=== PATIENT | female | born 1970 | race Caucasian/White ===

== ENCOUNTER 2017-07-24 19:23 | Inpatient (IN) ==
[2017-07-24] MEDS ORDERED: 0.9 % Sodium Chloride 1,000 ML IVC ONE (19:57)
[2017-07-24] MEDS ORDERED: Ketorolac 15 MG/ML VIAL IVP ONE (19:57)
[2017-07-24] MEDS ORDERED: Ondansetron 4 MG/2 ML VIAL IVP ONE (19:57)
[2017-07-24 20:07] LABS: Basophils # 0.1 K/mcL (0.0-0.2); Basophils % 0.6 %; Eosinophils # 0.1 K/mcL (0.0-0.6); Eosinophils % 0.8 %; Hematocrit 44.5 % (35.3-44.9); Hemoglobin 14.7 g/dL (11.5-15.4); Immature Granulocytes % 0.4 % (0-4); Lymphocytes # 1.1 K/mcL (0.6-4.6); Lymphocytes % 9.4 %; Mean Corpuscular Hemoglobin 27.3 pg (28.0-33.3); Mean Corpuscular Volume 82.6 fL (83.0-100.0); Mean Platelet Volume 10.4 fL (9.4-12.4); Monocytes % 8.7 %; Neutrophils # 9.6 K/mcL (1.6-8.9); Platelet Count 388 K/mcL (140-400); Red Blood Count 5.39 M/mcL (3.82-4.97); Red Cell Distribution Width 15.5 % (11.5-14.5); Segmented Neutrophils % 80.1 %
[2017-07-24 20:29] LABS: Alanine Aminotransferase 14 Units/L (7-52); Albumin 4.4 g/dL (3.5-5.7); Albumin/Globulin Ratio 1.3 (1.1-2.2); Alkaline Phosphatase 95 Units/L (34-104); Aspartate Amino Transferase 22 Units/L (13-39); BUN/Creatinine Ratio 19 (6-26); Bilirubin,Direct 0.1 mg/dL (0.0-0.2); Bilirubin,Indirect 0.3 mg/dL (0.0-1.2); Bilirubin,Total 0.4 mg/dL (0.3-1.0); Blood Urea Nitrogen 15 mg/dL (6-20); Calcium 9.9 mg/dL (8.6-10.3); Carbon Dioxide 25 mEq/L (23-29); Chloride 101 mEq/L (98-107); Globulin 3.3 g/dL (2.4-3.5); Glucose 122 mg/dL (70-105); Lipase 36 Units/L (11-82); Osmolality,Calculated 282 (280-300); Potassium 3.5 mEq/L (3.5-5.1); Sodium 135 mEq/L (136-145); Total Protein 7.7 g/dL (6.4-8.9); eGFR For African Americans > 60 (> 60); eGFR For Non-African Americans > 60 (> 60)
[2017-07-24 20:50] LABS: Platelet Estimate Normal (Normal)
[2017-07-24] MEDS ORDERED: *HR* FentaNYL (PF) 100 MCG/2 ML VIAL IVP ONE (20:50)
[2017-07-24] MEDS ORDERED: Haloperidol Lactate 5 MG/ML VIAL IVP ONE (20:50)
--- NOTE | 2017-07-24 23:21 | Emergency Department Note ---
Disposition Clinical Impression: Small bowel obstruction Disposition: Admitted As Inpatient Condition: Good Referrals: NONE,PCP [Primary Care Provider] - Nikolas Oconnell DO [Family Provider] - Abdominal Pain HPI - General Chief Complaint: ED Abdominal Pain Stated Complaint: ABD pain/nausea Time Seen by Provider: 07/24/17 19:47 Source: patient Mode of arrival: ambulatory Limitations: no limitations Nursing Notes Reviewed: Yes Vital Signs Reviewed: Yes - History of Present Illness HPI Narrative: Patient presents to the emergency department after developing abdominal pain with associated nausea earlier today. Patient's symptoms have worsened throughout the day with pain radiating to the back. Patient states she has a history of previous gallbladder surgery as well as gastric bypass performed 14 years ago. Surgeon no longer practices. The patient states she is not able to vomit secondary to the type of surgery she had. The patient has not had fever or chills. Patient does not have any rebound tenderness. Pain Scale: 5 - Related Data Allergies Allergy/AdvReac Type Severity Reaction Status Date / Time Influenza Virus Vaccines Allergy Anaphylaxis Verified 07/24/17 19:26 latex Allergy Anaphylaxis Verified 07/24/17 19:26 pain medication AdvReac See Uncoded 07/24/17 19:26 Comments Review of Systems: CONSTITUTIONAL: No weight loss, fever, chills, weakness or fatigue. HEENT: Eyes: No visual changes. Ears, Nose, Throat: No hearing loss, difficulty talking or unable to swallow. SKIN: No rash or itching. CARDIOVASCULAR: No chest pain, chest pressure or chest discomfort. No palpitations or edema. RESPIRATORY: No shortness of breath, cough or sputum. GASTROINTESTINAL: Nausea and abdominal pain GENITOURINARY: No burning on urination or hematuria. NEUROLOGICAL: No headache, dizziness, syncope, paralysis, ataxia, numbness or tingling in the extremities. No change in bowel or bladder control. MUSCULOSKELETAL: No muscle pain, back pain, joint pain or stiffness. Abdominal Pain PMH - Past Medical History Medical history: Reports: other Female Surgical History: Reports: cholecystectomy, orthopedic, other, other Psychiatric history: Reports: no psych history - Social History Smoking status: Current every day smoker Alcohol use: Reports: occasionally Drug use: Reports: none Physical Exam General: Well appearing, nontoxic, no acute distress Head: Normocephalic Atraumatic Eyes: PERRL, EOMI ENT: Airway patent, no stridor Neck: supple, no meningismus Chest: Lungs clear to auscultation bilateral Cardiac: Regular rate and rhythm, no murmurs, rubs or gallops Abdomen: soft, mild epigastric tenderness, nondistended; no guarding, rebound, or tenderness to percussion; no CVA tenderness Musculoskeletal: Calves symmetric, nontender, no palpable cord Skin: No rash, normal skin tone Neuro: Alert and Oriented to person, place, and time; No focal deficit, CN 2-12 symmetric and intact - General Limitations: no limitations General appearance: alert, in no apparent distress Course - Reevaluation(s) Reevaluation #1: Patient still complaining of nausea after Zofran. Patient will be given Haldol for nausea control. On reevaluation the Haldol has significantly improved her symptoms that she is resting in bed comfortably without complaint. Reevaluation #2: Discussed with the patient the placement of an NG tube. 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 Patient does not want NG tube at this time. - Consultations Consultation #1: Discussed with Dr. Ornelas. Patient can be admitted to the hospital service and he will consult. Consultation #2: Discussed with hospitalist. Requests NG tube placement in the ED. Vital Signs Temperature 98 F 07/24/17 19:26 Pulse Rate 81 07/24/17 19:26 Respiratory Rate 18 07/24/17 19:26 Blood Pressure 139/88 07/24/17 19:26 O2 Sat by Pulse Oximetry 96 07/24/17 19:26 Temperature 98 F 07/24/17 19:26 Pulse Rate 81 07/24/17 19:26 Respiratory Rate 18 07/24/17 19:26 Blood Pressure 139/88 07/24/17 19:26 O2 Sat by Pulse Oximetry 96 07/24/17 19:26 Oxygen Delivery Oxygen Delivery Room Air Abdominal Pain - Lab Data Result diagrams: 07/24/17 20:00 07/24/17 20:00 Lab Results 07/24/17 07/24/17 Range/Units 20:00 20:00 WBC 12.0 H (4.3-11.1) K/mcL RBC 5.39 H (3.82-4.97) M/mcL Hgb 14.7 (11.5-15.4) g/dL Hct 44.5 (35.3-44.9) % MCV 82.6 L (83.0-100.0) fL MCH 27.3 L (28.0-33.3) pg MCHC 33.0 (31.6-35.5) g/dL RDW 15.5 H (11.5-14.5) % Plt Count 388 (140-400) K/mcL MPV 10.4 (9.4-12.4) fL Immature Gran % 0.4 (0-4) % Seg Neutrophils % 80.1 % Lymphocytes % 9.4 % Monocytes % 8.7 % Eosinophils % 0.8 % Basophils % 0.6 % Neutrophils # 9.6 H (1.6-8.9) K/mcL Lymphocytes # 1.1 (0.6-4.6) K/mcL Monocytes # 1.0 (0.0-1.3) K/mcL Eosinophils # 0.1 (0.0-0.6) K/mcL Basophils # 0.1 (0.0-0.2) K/mcL Platelet Estimate Normal (Normal) Sodium 135 L (136-145) mEq/L Potassium 3.5 (3.5-5.1) mEq/L Chloride 101 (98-107) mEq/L Carbon Dioxide 25 (23-29) mEq/L BUN 15 (6-20) mg/dL Creatinine 0.79 (0.60-1.20) mg/dL Est GFR ( Amer) > 60 (> 60) Est GFR (Non-Af Amer) > 60 (> 60) BUN/Creatinine Ratio 19 (6-26) Glucose 122 H (70-105) mg/dL Calculated Osmolality 282 (280-300) Calcium 9.9 (8.6-10.3) mg/dL Total Bilirubin 0.4 (0.3-1.0) mg/dL Direct Bilirubin 0.1 (0.0-0.2) mg/dL Indirect Bilirubin 0.3 (0.0-1.2) mg/dL AST 22 (13-39) Units/L ALT 14 (7-52) Units/L Alkaline Phosphatase 95 (34-104) Units/L Serum Total Protein 7.7 (6.4-8.9) g/dL Albumin 4.4 (3.5-5.7) g/dL Globulin 3.3 (2.4-3.5) g/dL Albumin/Globulin Ratio 1.3 (1.1-2.2) Lipase 36 (11-82) Units/L
--- NOTE | 2017-07-24 23:23 | Emergency Department Note ---
START Narrative - START START: I examined this patient and my medical decision-making was reviewed with the Resident Physician. I agree with the documented findings, disposition and treatment plan as described except to the extent set forth below. Discussed case with surgery. Findings of small bowel obstruction. Patient medicated for nausea. She is no longer vomiting. She will be admitted for further evaluation of possible bowel obstruction.
[2017-07-25] MEDS ORDERED: Naloxone 0.4 MG/ML INJ IVP PRN (01:29)
--- NOTE | 2017-07-25 04:00 | Internal Med History&Physical ---
Date of Encounter: 07/25/17 Time of Encounter: 00:15 Assessment and Plan (1) DVT prophylaxis Current visit: Yes Status: Acute Heparin SC (2) Small bowel obstruction Current visit: Yes Status: Acute Pt has Hx of surgery. She also has similar SBO previously. As she has passing gas and had BM, consider partial SBO. - Keep NPO, IVF - Surgical consult called by ER. Internal Medicine - H&P: HPI Chief complaint: Abd pain Admitted From: Home Plans for Post Hospital Care: Home History of present illness: Ms. Broderick is a 46 year old female with hx of gastric bypass surgery present to ER for abd pain and nausea/vomiting. Pt said abd pain started since 6AM, cramping, rediated to back. Pt also has nausea and vomited several times. The vomitings are clear liquid, no blood in it. Pt denies fever or diarrhea. She can pass gas and had on BM in ER, stool is yellowish. In ER, Abd CT shows SBO. Pt was admitted for further management. Past Med Surg Social Fam HX - Past Medical History Medical history: other Psychiatric history: no psych history - Social History Smoking Status: Current every day smoker Packs per day: 1/2 ppd Smokeless Tobacco Status: No Alcohol use: occasionally Drug use: none - Family History Mother History Unknown: Yes Internal Medicine - H&P: Meds 3 Allergy/AdvReac Type Severity Reaction Status Date / Time Influenza Virus Vaccines Allergy Anaphylaxis Verified 07/24/17 19:26 latex Allergy Anaphylaxis Verified 07/24/17 19:26 pain medication AdvReac See Uncoded 07/24/17 19:26 Comments All Systems PM: A 10-system review of systems was performed and is negative for pertinent findings except as documented above in the HPI. - Constitutional Vitals: Temp Pulse Resp BP Pulse Ox 99.3 F 66 17 138/83 97 07/25/17 01:45 07/25/17 01:45 07/25/17 01:45 07/25/17 01:45 07/25/17 01:45 General appearance: Present: A&O X 3, no acute distress, answers questions appropriately - Head Head exam: Present: atraumatic, normocephalic - Eye Eye exam: Present: PERRL, conjuntiva pink, sclera anicteric Pupils: Present: PERRL - Neck Neck exam general surgery: Present: supple, trachea midline. Absent: lymphadenopathy - Respiratory Respiratory exam: Present: CTAB. Absent: accessory muscle use, rales, rhonchi, wheezes - Cardiovascular Cardiovascular exam: Present: RRR, +S1, +S2. Absent: diastolic murmur, gallop, rubs, systolic murmur - GI/Abdominal GI/Abdominal exam: Present: normal bowel sounds, soft, tenderness (mild tenderness w/o rebound or guarding), no peritoneal signs. Absent: distended - Extremities Exam Extremities exam: Present: warm, radial pulses palpable and symmetrical. Absent : calf tenderness, cyanotic, pedal edema - Neurological Exam Neurological exam: Present: CN II-XII intact, oriented X3, no focal deficits. Absent: pronater drift, facial droop, speech deficit - Skin Skin exam: Present: dry, intact Internal Med - H&P Results - Labs CBC & Chem 7: 07/24/17 20:00 07/24/17 20:00
[2017-07-25] MEDS: 0.9 % Sodium Chloride 1,000 ML IVC SCH ×2 (04:13→18:46)
[2017-07-25 04:48] LABS: Basophils # 0.1 K/mcL (0.0-0.2); Basophils % 0.5 %; Eosinophils # 0.1 K/mcL (0.0-0.6); Eosinophils % 0.5 %; Hematocrit 41.3 % (35.3-44.9); Hemoglobin 13.8 g/dL (11.5-15.4); Immature Granulocytes % 0.5 % (0-4); Lymphocytes # 2.2 K/mcL (0.6-4.6); Lymphocytes % 16.6 %; Mean Corpuscular HGB Conc 33.4 g/dL (31.6-35.5); Mean Corpuscular Hemoglobin 27.7 pg (28.0-33.3); Mean Corpuscular Volume 82.8 fL (83.0-100.0); Mean Platelet Volume 10.4 fL (9.4-12.4); Monocytes # 1.1 K/mcL (0.0-1.3); Monocytes % 8.7 %; Platelet Count 338 K/mcL (140-400); Red Blood Count 4.99 M/mcL (3.82-4.97); Red Cell Distribution Width 15.6 % (11.5-14.5); Segmented Neutrophils % 73.2 %
[2017-07-25 05:01] LABS: Neutrophils # 9.5 K/mcL (1.6-8.9)
[2017-07-25] MEDS: Ketorolac 15 MG/ML VIAL IVP PRN ×2 (05:07→21:44)
[2017-07-25] MEDS: *HR* Heparin 5,000 UNIT/ML VIAL SQ SCH ×2 (05:08→18:46)
[2017-07-25] MEDS: Ondansetron 4 MG/2 ML VIAL IVP PRN ×3 (05:08→21:16)
[2017-07-25 05:12] LABS: BUN/Creatinine Ratio 21 (6-26); Blood Urea Nitrogen 16 mg/dL (6-20); Calcium 9.1 mg/dL (8.6-10.3); Carbon Dioxide 27 mEq/L (23-29); Chloride 104 mEq/L (98-107); Glucose 93 mg/dL (70-105); Magnesium 1.9 mg/dL (1.6-2.6); Osmolality,Calculated 285 (280-300); Potassium 3.3 mEq/L (3.5-5.1); Sodium 137 mEq/L (136-145); eGFR For African Americans > 60 (> 60); eGFR For Non-African Americans > 60 (> 60)
[2017-07-25 05:51] LABS: Platelet Estimate Normal (Normal)
--- NOTE | 2017-07-25 09:23 | Event Note ---
<Elif Caraballo - Last Filed: 07/25/17 16:15> Date of Encounter: 07/25/17 Time of Encounter: 09:05 S: Ms. Broderick is a 38-year-old female with a past surgical history of gastric bypass and cholecystectomy presented to the ED with abdominal pain and nausea for one day and was found to have a volvulus with partial obstruction per report on CT of abdomen/pelvis. Surgery was consulted. Patient was given Haldol and Zofran for nausea and fentanyl for pain in the ED. Patient states that she felt better and only had one episode of abdominal pain and nausea last name. This morning patient states that her abdominal pain is 0 and she is not nauseous. Patient states that she is a little bit hungry currently. Patient admits to positive flatus and bowel movement last night that was soft. Denies vomiting, hematochezia, shortness of breath. Of note patient states that she has had this previously and she was just observed in the hospital without surgical intervention and released. O: vitals: wnl labs: CBC: WBC 13, BMP unremarkable Exam: Constitutional: Alert, in no acute distress, well nourished, well developed. Head: Normocephalic, atraumatic, Heart: Normal, regular rate and rhythm, no murmurs Lungs: Clear to auscultation, no wheezes, rales, or rhonchi Abdomen: Soft, nondistended, nontender, bowel sounds present with some high pitched tinging but overall normal activity, no guarding or rigidity. Extremities: No clubbing, cyanosis, or edema, radial pulse +2/4, capillary refill <2sec. Skin: Skin warm and dry, no lesions, no rashes, no jaundice, bruise on medial aspect of left lezama Neurologic: Cranial nerves II through XII grossly intact, no focal deficits, strength 5/5 in all extremities Psych: Cooperative with exam, good eye contact, cognitive function intact, judgment good insight good, speech clear, thought process logical, and goal directed Imaging: abdominal x-ray: Persistent moderate dilation of a small bowel loop in the left upper quadrant, corresponding with the CT appearance and consistent with partial obstruction potentially due to stricture or adhesion. SBFT pending A/P: 1. ileus vs. partial SBO - patient is clinically improving with no abd pain or nausea. BS present, BM yesterday. Will wait for surgery consult. Will continue fluids NS 120ml/hr for now. Continue NPO until small bowl follow through complete. Then if no n/v can advance to clears or fulls per surgery's permission. 2. dvt prophylaxis - heparin 3. lung nodule - asymptomatic, 3 mm lung nodule incidental finding. Due to 1/2 per day smoker will need f/u CT in 1 year. <Leonid Amaya - Last Filed: 07/25/17 17:47> Date of Encounter: 07/25/17 - Attending Attestation I examined this patient and my medical decision-making was reviewed with the Resident Physician. I agree with the documented findings, disposition and treatment plan as described except to the extent set forth below. This is Dr. Selwyn Amaya
[2017-07-25] MEDS ORDERED: Potassium Chloride 40 MEQ, Lidocaine 1% 2 ML in D5% in Water 500 ML IVPB ONE (10:24)
--- NOTE | 2017-07-25 12:03 | General Surgery Consult Note ---
Date of Encounter: 07/25/17 Time of Encounter: 11:40 Assessment and Plan (1) Abdominal pain Current Visit: Yes Status: Acute Noted to have underwent gastric bypass aprox 14 years ago. She is sleeping upon my entering of room and in NAD. Currently pain free. Reviewed CT findings detailed below. ABS, overall abdominal exam is benign. She reports having a bowel movement yesterday and infrequently passing flatus today. She denies an appetite, nausea, vomiting, or return of abdominal pain. Consideration given to resolution of volvulus. Plan: NPO for the time being. Fluid status per primary team. Two view acute abdominal series to evaluate bowel gas pattern. Further recommendations pending. Will review with Dr. Ornelas. CT/CT abd pelvis w iv no oral IMPRESSION: 1. 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 2. 3 mm left lower lobe pulmonary nodule. See follow-up recommendations below. Qualifiers: Abdominal location: generalized Qualified Code(s): R10.84 - Generalized abdominal pain (2) S/P gastric bypass Current Visit: Yes Status: Chronic see a/p above History of Present Illness Consult date: 07/24/17 (Dr. Mathieu Ornelas) Reason for consult: abdominal pain (possible volvulus s/p gastric bypass) Requesting physician: Robbin Barnett History of present illness: Nuria is a 46-year-old female with a past medical history of renal insufficiency, chronic pain, intermittent constipation, current everyday smoker , denies alcohol use, denies drug use, denies any opiate use, reports history of cholecystectomy, orthopedic surgery, and gastric bypass. She presented on 07/24/2017 to the emergency department for complaints of abdominal pain and nausea that developed earlier that day. She states the discomfort worsened throughout the day and began radiating to her back. She reports she had gastric bypass approximately 14 years ago and that her surgeon no longer practices. Her hospital course included lab work which revealed mildly elevated white blood cell count without Bandemia, K3.3L, and a CT of the abdomen/pelvis which noted changes of prior gastric bypass with distal mili limb volvulus causing partial or early complete obstruction. Nuria reports that she had a bowel movement not long after arriving to the hospital yesterday. She reports she has passed little gas today. She states she intermittently has constipation at home for which she takes correct all. She states she has a bowel movement approximately every other day on average. Currently she denies abdominal pain, nausea, vomiting, or an appetite. She states she feels better than she did when she presented to the hospital.She denies fevers or chills, chest pain, shortness of breath, headache, dizziness, generalized weakness. She states she has been taking her medications as directed. Surgery has been asked to evaluate this patient for possible small bowel obstruction. Past Med Surg Social Fam HX - Past Medical History Source: patient Medical history: renal disease, other (Smoking history, chronic pain,) Psychiatric history: no psych history - Past Surgical History Surgical History: cholecystectomy, orthopedic, other, other (Gastric bypass) - Social History Smoking Status: Current every day smoker Packs per day: 1/2 ppd Smokeless Tobacco Status: No Alcohol use: occasionally Drug use: none Occupational status: employed Current living situation: Home - Independent Activity Level: Independent ambulation Recent Out of Country Travel Within the Last 8 Weeks: No Exposure or Possible Exposure to Illness During Travel: No - Family History Mother History Unknown: Yes Medications and Allergies Cyanocobalamin (B-12) [Vitamin B12] 1,000 mcg IM QMONTH 07/25/17 [History] Diclofenac Sodium [Voltaren] 1 appl TP DAILY PRN 07/25/17 [History] Ergocalciferol (VITAMIN D2) [Vitamin D2] 50,000 unit PO QWEEK 07/25/17 [History] Gabapentin [Neurontin] 400 mg PO HS 07/25/17 [History] Levothyroxine Sodium [Levo-T] 75 mcg PO DAILY 07/25/17 [History] Methylphenidate HCl [Ritalin] 80 mg PO BID 07/25/17 [History] Paroxetine HCl [Paxil] 40 mg PO DAILY 07/25/17 [History] Spironolactone [Aldactone] 100 mg PO BID 07/25/17 [History] Topiramate [Topamax] 50 mg PO BID 07/25/17 [History] metOLazone [Zaroxolyn] 2.5 mg PO DAILY 07/25/17 [History] 3 Allergy/AdvReac Type Severity Reaction Status Date / Time Influenza Virus Vaccines Allergy Anaphylaxis Verified 07/24/17 19:26 latex Allergy Anaphylaxis Verified 07/24/17 19:26 Review of Systems All systems PM: reviewed and no additional remarkable complaints except as stated All systems PM: A 10-system review of systems was performed and is negative for pertinent findings except as documented above in the HPI. General Surgery Exam Initial Vital Signs Temp Pulse Resp BP Pulse Ox 98 F 81 18 139/88 96 07/24/17 19:26 07/24/17 19:26 07/24/17 19:26 07/24/17 19:26 07/24/17 19:26 - General physical appearance well developed, no distress, other - Eyes normal ocular movement - ENT normal mucosa, atraumatic, normocephalic - Neck trachea midline, no venous distension - Respiratory normal expansion, normal respiratory effort, clear to auscultation - Abdomen Abdomen general surgery: Present: bowel sounds present, soft, non tender Hernia: Present: none - Integumentary Integumentary general surgery: Present: warm and dry, no abnormal pigmentation - Neurologic Present: CN 2-12 grossly intact, normal coordination, normal sensation - Musculoskeletal Present: normal gait, normal posture - Psychiatric Psychiatric general surgery: Present: A&Ox3, appropriate, oriented to person, oriented to place, oriented to time, speech is normal, memory intact Exam Initial Vital Signs Temp Pulse Resp BP Pulse Ox 98 F 81 18 139/88 96 07/24/17 19:26 07/24/17 19:26 07/24/17 19:26 07/24/17 19:26 07/24/17 19:26 Results - Labs 07/25/17 04:41 07/25/17 04:41 Abnormal lab results WBC 13.0 K/mcL (4.3-11.1) H 07/25/17 04:41 RBC 4.99 M/mcL (3.82-4.97) H 07/25/17 04:41 MCV 82.8 fL (83.0-100.0) L 07/25/17 04:41 MCH 27.7 pg (28.0-33.3) L 07/25/17 04:41 RDW 15.6 % (11.5-14.5) H 07/25/17 04:41 Neutrophils # 9.5 K/mcL (1.6-8.9) H 07/25/17 04:41 Potassium 3.3 mEq/L (3.5-5.1) L 07/25/17 04:41 POC Glucose 111 (58-89) H 07/25/17 11:12 Diabetes panel 07/25/17 Range/Units 04:41 Sodium 137 (136-145) mEq/L Potassium 3.3 L (3.5-5.1) mEq/L Chloride 104 (98-107) mEq/L Carbon Dioxide 27 (23-29) mEq/L BUN 16 (6-20) mg/dL Creatinine 0.78 (0.60-1.20) mg/dL Glucose 93 (70-105) mg/dL Calcium 9.1 (8.6-10.3) mg/dL Calcium panel 07/25/17 Range/Units 04:41 Calcium 9.1 (8.6-10.3) mg/dL Pituitary panel 07/25/17 Range/Units 04:41 Sodium 137 (136-145) mEq/L Potassium 3.3 L (3.5-5.1) mEq/L Chloride 104 (98-107) mEq/L Carbon Dioxide 27 (23-29) mEq/L BUN 16 (6-20) mg/dL Creatinine 0.78 (0.60-1.20) mg/dL Glucose 93 (70-105) mg/dL Calcium 9.1 (8.6-10.3) mg/dL Adrenal panel 07/25/17 Range/Units 04:41 Sodium 137 (136-145) mEq/L Potassium 3.3 L (3.5-5.1) mEq/L Chloride 104 (98-107) mEq/L Carbon Dioxide 27 (23-29) mEq/L BUN 16 (6-20) mg/dL Creatinine 0.78 (0.60-1.20) mg/dL Glucose 93 (70-105) mg/dL Calcium 9.1 (8.6-10.3) mg/dL All other labs normal. - Imaging CT scan - abdomen: report reviewed CT scan - pelvis: report reviewed Consult Discharge Plan - Plan Referrals: NONE,PCP [Primary Care Provider] - Nikolas Oconnell DO [Family Provider] -
[2017-07-25] MEDS: *HR* Promethazine 25 MG/ML VIAL IVP PRN (18:46)
[2017-07-26] MEDS: *HR* Promethazine 25 MG/ML VIAL IVP PRN ×2 (00:36→08:35)
[2017-07-26 03:32] LABS: Basophils % 0.2 %; Hematocrit 41.7 % (35.3-44.9); Hemoglobin 13.4 g/dL (11.5-15.4); Immature Granulocytes % 0.5 % (0-4); Lymphocytes # 1.1 K/mcL (0.6-4.6); Lymphocytes % 9.7 %; Mean Corpuscular HGB Conc 32.1 g/dL (31.6-35.5); Mean Corpuscular Volume 83.9 fL (83.0-100.0); Mean Platelet Volume 11.1 fL (9.4-12.4); Monocytes # 0.4 K/mcL (0.0-1.3); Monocytes % 3.5 %; Neutrophils # 9.4 K/mcL (1.6-8.9); Platelet Count 370 K/mcL (140-400); Red Blood Count 4.97 M/mcL (3.82-4.97); Red Cell Distribution Width 15.6 % (11.5-14.5); Segmented Neutrophils % 86.1 %
[2017-07-26] MEDS: Ketorolac 15 MG/ML VIAL IVP PRN (03:35)
[2017-07-26] MEDS: Ondansetron 4 MG/2 ML VIAL IVP PRN (03:35)
[2017-07-26 03:53] LABS: BUN/Creatinine Ratio 35 (6-26); Blood Urea Nitrogen 26 mg/dL (6-20); Calcium 9.5 mg/dL (8.6-10.3); Carbon Dioxide 26 mEq/L (23-29); Chloride 106 mEq/L (98-107); Glucose 120 mg/dL (70-105); Osmolality,Calculated 298 (280-300); Potassium 3.5 mEq/L (3.5-5.1); Sodium 141 mEq/L (136-145); eGFR For African Americans > 60 (> 60); eGFR For Non-African Americans > 60 (> 60)
[2017-07-26] MEDS: *HR* Heparin 5,000 UNIT/ML VIAL SQ SCH ×2 (06:03→17:36)
--- NOTE | 2017-07-26 07:35 | Internal Med Progress Note ---
Date of Encounter: 07/26/17 Time of Encounter: 07:33 - Assessment and plan (1) Small bowel obstruction Current Visit: Yes Status: Acute Assessment and plan: Partial small bowel obstruction resolving general surgery following (2) Abdominal pain Current Visit: Yes Status: Acute Assessment and plan: Abdominal pain has resolved abdomen is soft Qualifiers: Abdominal location: generalized Qualified Code(s): R10.84 - Generalized abdominal pain (3) S/P gastric bypass Current Visit: Yes Status: Chronic Assessment and plan: Gastric bypass and the past - Subjective Interval history: Patient with history of gastric bypass admitted with abdominal pain nausea and vomiting found to have a volvulus and partial obstruction patient seen and being followed by general surgery this morning patient's normal abdominal pain still has some nausea but no vomiting - Constitutional Vitals: Temp Pulse Resp BP Pulse Ox 99.5 F 78 14 161/92 95 07/26/17 06:34 07/26/17 06:34 07/26/17 06:34 07/26/17 06:34 07/26/17 06:34 General appearance: Present: A&O X 3, no acute distress, answers questions appropriately - Head Head exam: Present: atraumatic, normocephalic - Eye Eye exam: Present: PERRL, conjuntiva pink, sclera anicteric Pupils: Present: PERRL - Neck Neck exam general surgery: Present: supple, trachea midline. Absent: lymphadenopathy - Respiratory Respiratory exam: Present: CTAB. Absent: accessory muscle use, rales, rhonchi, wheezes - Cardiovascular Cardiovascular exam: Present: RRR, +S1, +S2. Absent: diastolic murmur, gallop, rubs, systolic murmur - GI/Abdominal GI/Abdominal exam: Present: soft Internal Medicine: Result - Labs CBC & Chem 7: 07/26/17 02:59 07/26/17 02:59 Labs: Short CBC 07/26/17 Range/Units 02:59 WBC 10.9 (4.3-11.1) K/mcL Hgb 13.4 (11.5-15.4) g/dL Hct 41.7 (35.3-44.9) % Plt Count 370 (140-400) K/mcL Neutrophils # 9.4 H (1.6-8.9) K/mcL BMP 07/26/17 02:59 Sodium 141 Potassium 3.5 Chloride 106 Carbon Dioxide 26 BUN 26 H Creatinine 0.74 Glucose 120 H Calcium 9.5 - Impressions Impressions Abdomen X-Ray 07/25/17 12:19 IMPRESSION: Persistent moderate dilation of a small bowel loop in the left upper quadrant, corresponding with the CT appearance and consistent with partial obstruction potentially due to stricture or adhesion. D/ / Quang Orantes MD / Quang Orantes MD Interpreting Provider: Quang Orantes MD Small Bowel X-Ray 07/25/17 13:51 IMPRESSION: Dilated small bowel loops in the left upper quadrant measuring up to 5 cm with a transition point at the midline anastomosis just above the umbilicus. Dr. Terry was busy in the operating room so the results were given to his clinical assistant Souleymane at 6:20 p.m. on 07/25/2017. D/ / Patrick Latham MD / Patrick Latham MD Interpreting Provider: Patrick Latham MD Consult Discharge Plan - Plan Referrals: Nikolas Oconnell DO [Family Provider] -
--- NOTE | 2017-07-26 09:02 | General Surgery Progress Note ---
Date of Encounter: 07/26/17 Time of Encounter: 08:45 - Assessment and Plan (1) Partial small bowel obstruction Current Visit: Yes Status: Acute Continue NPO IV fluids- 75ml/hour CT scan of abdomen/pelvis stat to further evaluate of PSBO Supportive care/pain control XR/XR abdomen 2V IMPRESSION: 1. Persistent dilatation of small bowel loops measuring up to 5.6 cm. 2. Contrast is seen within the right colon suggesting at least a partial small bowel obstruction. (2) S/P gastric bypass Current Visit: Yes Status: Chronic (3) DVT prophylaxis Current Visit: Yes Status: Acute Heparin 5,000 units SQ twice daily for DVT prophylaxis Ambulate hallways TID with assistance Subjective Patient reports: no new complaints, feels better, voiding w/o difficulty, flatus , bowel movement (2 bowel movements noted last evening), nausea (without vomiting), fever (Tmax- 99.7, Tcurrent- 99.5), other (Denies any abdominal pain) Objective Vital Signs - Last 8 Hours Temp Pulse Resp BP Pulse Ox 07/26/17 06:34 99.5 F 78 14 161/92 95 07/26/17 03:28 99.7 F H 74 18 159/94 95 Intake and Output 07/25/17 07/26/17 07/26/17 23:59 07:59 15:59 Intake Total 2522 / 2522 0 / 0 Output Total 0 / 0 0 / 0 Balance 2522 / 2522 0 / 0 Intake: IV Fluids 2522 / 2522 0.9 % Sodium Chloride 1,000 ML 2000 / 2000 @ 120 mls/hr IVC .[id number] [facility] Rx #:[id number] KCl 40 MEQ Xylocaine 2 ML In 522 / 522 Dextrose 5% 500 ML @ 130.5 mls/ hr IVPB ONCE ONE Rx#:[id number] Oral 0 / 0 0 / 0 Output: Urine 0 / 0 0 / 0 Other: Weight 92.233 kg Blood Glucose* 104 110 Patient Weight 07/26/17 23:59 Weight 92.233 kg - General physical appearance well developed, well nourished, no distress, no pain - Eyes normal ocular movement - ENT normal mucosa, atraumatic, normocephalic - Neck Neck exam: trachea midline - Respiratory normal respiratory effort, clear to auscultation - Cardiovascular Cardiovascular exam: Present: RRR - Abdomen Abdomen: Present: bowel sounds present (minimal, hypoactive), soft, non tender - Integumentary no rash, no growths, no abnormal pigmentation - Neurologic CN 2-12 grossly intact - Musculoskeletal normal gait, normal posture - Psychiatric oriented to time, oriented to person, oriented to place, speech is normal, memory intact - Labs 07/26/17 02:59 07/26/17 02:59 Diabetes panel 07/26/17 Range/Units 02:59 Sodium 141 (136-145) mEq/L Potassium 3.5 (3.5-5.1) mEq/L Chloride 106 (98-107) mEq/L Carbon Dioxide 26 (23-29) mEq/L BUN 26 H (6-20) mg/dL Creatinine 0.74 (0.60-1.20) mg/dL Glucose 120 H (70-105) mg/dL Calcium 9.5 (8.6-10.3) mg/dL Calcium panel 07/26/17 Range/Units 02:59 Calcium 9.5 (8.6-10.3) mg/dL Pituitary panel 07/26/17 Range/Units 02:59 Sodium 141 (136-145) mEq/L Potassium 3.5 (3.5-5.1) mEq/L Chloride 106 (98-107) mEq/L Carbon Dioxide 26 (23-29) mEq/L BUN 26 H (6-20) mg/dL Creatinine 0.74 (0.60-1.20) mg/dL Glucose 120 H (70-105) mg/dL Calcium 9.5 (8.6-10.3) mg/dL Adrenal panel 07/26/17 Range/Units 02:59 Sodium 141 (136-145) mEq/L Potassium 3.5 (3.5-5.1) mEq/L Chloride 106 (98-107) mEq/L Carbon Dioxide 26 (23-29) mEq/L BUN 26 H (6-20) mg/dL Creatinine 0.74 (0.60-1.20) mg/dL Glucose 120 H (70-105) mg/dL Calcium 9.5 (8.6-10.3) mg/dL - Imaging Additional Studies: Abdomen/Pelvis CT 07/24/17 21:34 IMPRESSION: 1. 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 2. 3 mm left lower lobe pulmonary nodule. See follow-up recommendations below. RECOMMENDATIONS: Fleischner Society guidelines for follow-up and management of incidentally detected pulmonary nodules: Single Solid Nodule: Nodule size less than 6 mm In a low-risk patient, no routine follow-up. In a high-risk patient, optional CT at 12 months. - Low risk patients include individuals with minimal or absent history of smoking and other known risk factors. - High risk patients include individuals with a history or smoking or known risk factors. Radiology 2017 http://pubs.[facility].org/doi/full/10.1148/radiol.5994156097 D/ / Kamlesh Josue / Kamlesh Josue Interpreting Provider: Kamlesh Josue Small Bowel X-Ray 07/25/17 13:51 IMPRESSION: Dilated small bowel loops in the left upper quadrant measuring up to 5 cm with a transition point at the midline anastomosis just above the umbilicus. Dr. Terry was busy in the operating room so the results were given to his land surveyor assistant Souleymane at 6:20 p.m. on 07/25/2017. D/ / Patrick Latham MD / Patrick Latham MD Interpreting Provider: Patrick Latham MD Abdomen X-Ray 07/26/17 07:48 IMPRESSION: 1. Persistent dilatation of small bowel loops measuring up to 5.6 cm. 2. Contrast is seen within the right colon suggesting at least a partial small bowel obstruction. D/ / Ronald Buchanan MD / Ronald Buchanan MD Interpreting Provider: Ronald Buchanan MD Consult Discharge Plan - Plan Referrals: Nikolas Oconnell DO [Family Provider] - - Attending Attestation For this encounter, I have reviewed the FINISHING AREA OPERATOR or PA documentation, treatment plan, and medical decision making; and I have had face to face time with this patient.
[2017-07-26 09:08] LABS: Bilirubin,Urine Small (Negative); Blood,Urine Small (Negative); Clarity,Urine Clear (Clear); Color,Urine Yellow (Yellow); Glucose,Urine (UA) Normal (Normal); Ketones,Urine Negative (Negative); Leukocyte Esterase,Urine Negative (Negative); Nitrite,Urine Negative (Negative); Protein,Urine Trace mg/dL (Neg-Trace); Specific Gravity,Urine > 1.030 (1.010-1.025); Urobilinogen,Urine Normal (Normal)
[2017-07-26 09:12] LABS: Bacteria,Urine None Seen per hpf (None-Few); Hyaline Casts,Urine None Seen per lpf (None-Few); Squamous Epithelial Cell,Urine Moderate per lpf (None-Few)
[2017-07-26] MEDS: 0.9 % Sodium Chloride 1,000 ML IVC SCH (10:01)
[2017-07-26] MEDS ORDERED: MetroNIDAZOLE 500 MG/100 ML 500 MG/100 ML BAG IVPB SCH ×2 (12:00→23:00)
[2017-07-26] MEDS: MetroNIDAZOLE 500 MG/100 ML 500 MG/100 ML BAG IVPB SCH (15:28)
[2017-07-27] MEDS: MetroNIDAZOLE 500 MG/100 ML 500 MG/100 ML BAG IVPB SCH ×4 (00:34→23:53)
[2017-07-27] MEDS: *HR* Heparin 5,000 UNIT/ML VIAL SQ SCH ×2 (05:40→18:34)
--- NOTE | 2017-07-27 07:46 | Internal Med Progress Note ---
Date of Encounter: 07/27/17 Time of Encounter: 07:44 - Assessment and plan (1) Small bowel obstruction Current Visit: Yes Status: Acute Assessment and plan: Bowel obstruction is resolving no nausea or vomiting CT of the abdomen yesterday shows resolution (2) Abdominal pain Current Visit: Yes Status: Acute Assessment and plan: No more abdominal pain Qualifiers: Abdominal location: generalized Qualified Code(s): R10.84 - Generalized abdominal pain (3) S/P gastric bypass Current Visit: Yes Status: Chronic - Subjective Interval history: Patient with history of gastric bypass admitted with abdominal pain nausea and vomiting found to have a volvulus and partial obstruction patient seen and being followed by general surgery this morning patient's normal abdominal pain still has some nausea but no vomiting Today patient feels much better no nausea no vomiting having a bowel movement and will like to go home after I would just go with general surgery vessel Walk on her discharge today on the by mouth Flagyl and Cipro to complete a course - Constitutional Vitals: Temp Pulse Resp BP Pulse Ox 98.9 F 73 16 145/86 100 07/27/17 04:25 07/27/17 04:25 07/27/17 04:25 07/27/17 04:25 07/27/17 04:25 General appearance: Present: A&O X 3, no acute distress, answers questions appropriately - Eye Eye exam: Present: PERRL, conjuntiva pink, sclera anicteric Pupils: Present: PERRL - Neck Neck exam general surgery: Present: supple, trachea midline. Absent: lymphadenopathy - Respiratory Respiratory exam: Present: CTAB. Absent: accessory muscle use, rales, rhonchi, wheezes - Cardiovascular Cardiovascular exam: Present: RRR, +S1, +S2. Absent: diastolic murmur, gallop, rubs, systolic murmur - GI/Abdominal GI/Abdominal exam: Present: soft Internal Medicine: Result - Labs CBC & Chem 7: 07/26/17 02:59 07/26/17 02:59 Consult Discharge Plan - Plan Referrals: Nikolas Oconnell DO [Family Provider] -
[2017-07-27] MEDS: 0.9 % Sodium Chloride 1,000 ML IVC SCH ×2 (08:44→12:15)
--- NOTE | 2017-07-27 12:33 | General Surgery Progress Note ---
<LandrynicolasMerced lopez - Last Filed: 07/27/17 14:22> Date of Encounter: 07/27/17 Time of Encounter: 09:00 - Assessment and Plan (1) Partial small bowel obstruction Current Visit: Yes Status: Acute CT abdomen and pelvis showing evidence of partial small bowel obstruction and sigmoid colitis. -Patient receiving IV Cipro and Flagyl. -We advanced patient to a soft diet today. She states she has food aversions to all the food that was offered to her. She states she thinks she can eat regular food, however, does not have an appetite for it. -When patient is able to tolerate advancement of her diet, she is stable to be discharged from a surgical standpoint. (2) S/P gastric bypass Current Visit: Yes Status: Chronic Patient states she has food aversions ever since her gastric bypass. -Advance diet as tolerated. Objective Vital Signs - Last 8 Hours Temp Pulse Resp BP Pulse Ox 07/27/17 11:32 98.5 F 91 18 145/87 96 07/27/17 07:56 98.7 F 79 18 153/91 97 Intake and Output 07/26/17 07/27/17 07/27/17 23:59 07:59 15:59 Intake Total 1100 / 1100 300 / 300 1220 / 1220 Output Total 0 / 0 0 / 0 400 / 400 Balance 1100 / 1100 300 / 300 820 / 820 Intake: IV Fluids 1100 / 1100 300 / 300 1100 / 1100 0.9 % Sodium Chloride 1,000 ML 1000 / 1000 1000 / 1000 @ 75 mls/hr IVC .[id number] [facility] Rx #:[id number] Cipro Premix 400 MG/200 ML 400 200 / 200 mg In 200 ml @ 200 mls/hr IVPB Q12H [facility] Rx#:[id number] Flagyl Premix 500 MG/100 ML 500 100 / 100 100 / 100 100 / 100 mg In 100 ml @ 100 mls/hr IVPB Q8HR [facility] Rx#:[id number] Oral 0 / 0 0 / 0 120 / 120 Output: Urine 0 / 0 0 / 0 400 / 400 Other: Meal Breakfast # Voids 1 Weight 92.3 kg Blood Glucose* 167 Patient Weight 07/27/17 23:59 Weight 92.3 kg - General physical appearance well developed, well nourished, no distress - Respiratory normal expansion, normal respiratory effort, clear to auscultation - Cardiovascular Cardiovascular exam: Present: RRR, no murmurs/rubs/gallops - Abdomen Abdomen: Present: bowel sounds present, soft, non tender - Neurologic CN 2-12 grossly intact, normal coordination, normal sensation - Musculoskeletal normal gait, normal posture - Psychiatric oriented to time, oriented to person, oriented to place, speech is normal, memory intact - Labs 07/26/17 02:59 07/26/17 02:59 Consult Discharge Plan - Plan Referrals: Nikolas Oconnell DO [Family Provider] - <Abel Torres - Last Filed: 07/27/17 14:58> Date of Encounter: 07/27/17 Objective Vital Signs - Last 8 Hours Temp Pulse Resp BP Pulse Ox 07/27/17 11:32 98.5 F 91 18 145/87 96 07/27/17 07:56 98.7 F 79 18 153/91 97 Intake and Output 07/26/17 07/27/17 07/27/17 23:59 07:59 15:59 Intake Total 1100 / 1100 300 / 300 1700 / 1700 Output Total 0 / 0 0 / 0 400 / 400 Balance 1100 / 1100 300 / 300 1300 / 1300 Intake: IV Fluids 1100 / 1100 300 / 300 1100 / 1100 0.9 % Sodium Chloride 1,000 ML 1000 / 1000 1000 / 1000 @ 75 mls/hr IVC .[id number] [facility] Rx #:[id number] Cipro Premix 400 MG/200 ML 400 200 / 200 mg In 200 ml @ 200 mls/hr IVPB Q12H [facility] Rx#:[id number] Flagyl Premix 500 MG/100 ML 500 100 / 100 100 / 100 100 / 100 mg In 100 ml @ 100 mls/hr IVPB Q8HR [facility] Rx#:[id number] Oral 0 / 0 0 / 0 600 / 600 Output: Urine 0 / 0 0 / 0 400 / 400 Other: Meal Lunch Percent of Meal Consumed 10% # Voids 1 Weight 92.3 kg Blood Glucose* 167 Patient Weight 07/27/17 23:59 Weight 92.3 kg - Labs 07/26/17 02:59 07/26/17 02:59 - Attending Attestation I have personally seen and examined the patient. I have reviewed pertinent labs , imaging, progress notes, including this one. I agree with the above assessment and plan and wish to include the following... 46F concern for ileus; currently with bowel function; states she tolerates liquids, but does not like the taste at hopsital; abdomen soft, ND, NT; okay with advancing diet as tolerated; no acute surgery ]
[2017-07-28 06:02] LABS: Hematocrit 43.8 % (35.3-44.9); Hemoglobin 14.1 g/dL (11.5-15.4); Mean Corpuscular HGB Conc 32.2 g/dL (31.6-35.5); Mean Corpuscular Hemoglobin 27.2 pg (28.0-33.3); Mean Corpuscular Volume 84.4 fL (83.0-100.0); Platelet Count 347 K/mcL (140-400); Red Blood Count 5.19 M/mcL (3.82-4.97); Red Cell Distribution Width 15.4 % (11.5-14.5)
[2017-07-28 06:21] LABS: BUN/Creatinine Ratio 30 (6-26); Blood Urea Nitrogen 21 mg/dL (6-20); Calcium 9.4 mg/dL (8.6-10.3); Carbon Dioxide 25 mEq/L (23-29); Chloride 106 mEq/L (98-107); Glucose 111 mg/dL (70-105); Osmolality,Calculated 290 (280-300); Potassium 3.3 mEq/L (3.5-5.1); Sodium 138 mEq/L (136-145); eGFR For African Americans > 60 (> 60); eGFR For Non-African Americans > 60 (> 60)
[2017-07-28 07:12] VITALS: BP 133/92
[2017-07-28] MEDS ORDERED: Potassium Chloride Elixir 20 MEQ/15 ML UDC PO ONE (07:42)
[2017-07-28] MEDS: MetroNIDAZOLE 500 MG/100 ML 500 MG/100 ML BAG IVPB SCH (07:49)
[2017-07-28] MEDS: *HR* Promethazine 25 MG/ML VIAL IVP PRN (07:49)
[2017-07-28] MEDS: 0.9 % Sodium Chloride 1,000 ML IVC SCH (07:49)
[2017-07-28] MEDS: *HR* Heparin 5,000 UNIT/ML VIAL SQ SCH (07:50)
--- NOTE | 2017-07-28 08:46 | Discharge Summary ---
Date of Encounter: 07/28/17 Time of Encounter: 08:44 - Discharge Diagnosis (1) Abdominal pain Priority: Secondary Status: Resolved Qualifiers: Abdominal location: generalized Qualified Code(s): R10.84 - Generalized abdominal pain (2) Partial small bowel obstruction Priority: Primary Status: Resolved (3) S/P gastric bypass Priority: Secondary Status: Chronic (4) Colitis Priority: Secondary Status: Resolved - Discharge Medications Prescriptions: Ciprofloxacin HCl [Cipro] 500 mg PO BID 10 Days #20 tablet metroNIDAZOLE [Flagyl] 500 mg PO TID 10 Days #30 tablet Home Medications: Cyanocobalamin (B-12) [Vitamin B12] 1,000 mcg IM QMONTH 07/25/17 [History] Diclofenac Sodium [Voltaren] 1 appl TP DAILY PRN 07/25/17 [History] Ergocalciferol (VITAMIN D2) [Vitamin D2] 50,000 unit PO QWEEK 07/25/17 [History] Gabapentin [Neurontin] 400 mg PO HS 07/25/17 [History] Levothyroxine Sodium [Levo-T] 75 mcg PO DAILY 07/25/17 [History] Methylphenidate HCl [Ritalin] 80 mg PO BID 07/25/17 [History] Paroxetine HCl [Paxil] 40 mg PO DAILY 07/25/17 [History] Spironolactone [Aldactone] 100 mg PO BID 07/25/17 [History] Topiramate [Topamax] 50 mg PO BID 07/25/17 [History] metOLazone [Zaroxolyn] 2.5 mg PO DAILY 07/25/17 [History] Ciprofloxacin HCl [Cipro] 500 mg PO BID 10 Days #20 tablet 07/28/17 [Rx] metroNIDAZOLE [Flagyl] 500 mg PO TID 10 Days #30 tablet 07/28/17 [Rx] Allergies/Adverse Reactions: 3 Allergy/AdvReac Type Severity Reaction Status Date / Time Influenza Virus Vaccines Allergy Anaphylaxis Verified 07/24/17 19:26 latex Allergy Anaphylaxis Verified 07/24/17 19:26 Date of admission: 07/26/17 10:50 Primary care physician: PCP NONE Consults: 07/26/17 12:20 Consult to Invasive Line Access Team [CONS] Routine Reason for Consult: limited access Line Type: EPIV Discharging clinician: Jackeline Hancock Anticipated date of discharge: 07/28/17 - Patient Status Disposition: Home, Self-Care Condition: Good Functional capacity at discharge: independent ambulation Overall status at discharge: patient is back to baseline - Discharge Instructions Follow Up With: Nikolas Oconnell DO [Family Provider] - - Diet and Activity Diet: advance to your usual diet Interval History: Ms. Broderick is a 46 year old female with hx of gastric bypass surgery present to ER for abd pain and nausea/vomiting. Pt said abd pain started since 6AM, cramping, rediated to back. Pt also has nausea and vomited several times. The vomitings are clear liquid, no blood in it. Pt denies fever or diarrhea. She can pass gas and had on BM in ER, stool is yellowish. In ER, Abd CT shows SBO. Pt was admitted for further management. Patient was admitted for SBO and colitis on 07/25. SBO was seen by surgery and treated conservatively, she tolerated diet, abdominal pain improved. discharge on Cipro and flagyl for colitis. Hospital course: Ms. Broderick is a 46 year old female has hx of gastric bypass surgery present to ER for abd pain and nausea/vomiting. Pt said abd pain started since 6AM, cramping, rediated to back. Pt also has nausea and vomited several times. The vomitings are clear liquid, no blood in it. Pt denies fever or diarrhea. She can pass gas and had on BM in ER, stool is yellowish. In ER, Abd CT shows SBO and colitis Pt was admitted for further management on 07/25. Surgery was consulted, recommended treating SBO conservatively, patient tolerated deit, and abdominal pain improved. Surgery is ok to discharge. Patient is discharged on cipro and flagy for colitis on satble condition. Time spent discussing smoking cessation with patient: more than 10 minutes - Time Spent with Patient Total time spent providing and/or coordinating discharge services: Greater than 30 minutes - Constitutional Vitals: Temp Pulse Resp BP Pulse Ox 98.4 F 69 18 133/92 99 07/28/17 07:10 07/28/17 07:10 07/28/17 07:10 07/28/17 07:10 07/28/17 07:10 General appearance: Present: A&O X 3, no acute distress, answers questions appropriately - Head Head exam: Present: atraumatic, normocephalic - Eye Eye exam: Present: PERRL, conjuntiva pink, sclera anicteric Pupils: Present: PERRL - Neck Neck exam general surgery: Present: supple, trachea midline. Absent: lymphadenopathy - Respiratory Respiratory exam: Present: CTAB. Absent: accessory muscle use, rales, rhonchi, wheezes - Cardiovascular Cardiovascular exam: Present: RRR, +S1, +S2. Absent: diastolic murmur, gallop, rubs, systolic murmur - GI/Abdominal GI/Abdominal exam: Present: normal bowel sounds, soft, no peritoneal signs. Absent: distended, tenderness - Extremities Exam Extremities exam: Present: warm, radial pulses palpable and symmetrical. Absent : calf tenderness, cyanotic, pedal edema - Neurological Exam Neurological exam: Present: CN II-XII intact, oriented X3, no focal deficits. Absent: pronater drift, facial droop, speech deficit - Skin Skin exam: Present: dry, intact
--- NOTE | 2017-07-28 13:19 | General Surgery Progress Note ---
<Merced Benitez H - Last Filed: 07/28/17 13:19> Date of Encounter: 07/28/17 Time of Encounter: 10:00 - Assessment and Plan (1) Partial small bowel obstruction Status: Resolved CT abdomen and pelvis showing evidence of partial small bowel obstruction and sigmoid colitis. -Patient receiving IV Cipro and Flagyl. -Patient tolerating a diet without any problems. -Patient stable for discharge from surgical perspective. (2) S/P gastric bypass Status: Chronic Patient states she has food aversions ever since her gastric bypass. Subjective Patient reports: no new complaints, feels better, tolerating liquids well, tolerating a regular diet, voiding w/o difficulty, flatus, afebrile Objective Vital Signs - Last 8 Hours Temp Pulse Resp BP Pulse Ox 07/28/17 07:10 98.4 F 69 18 133/92 99 Intake and Output 07/27/17 07/28/17 07/28/17 23:59 07:59 15:59 Intake Total 340 / 340 1900 / 1900 240 / 240 Output Total 100 / 100 200 / 200 Balance 240 / 240 1700 / 1700 240 / 240 Intake: IV Fluids 100 / 100 1300 / 1300 0.9 % Sodium Chloride 1,000 ML 1000 / 1000 @ 75 mls/hr IVC .[id number] [facility] Rx #:[id number] Cipro Premix 400 MG/200 ML 400 200 / 200 mg In 200 ml @ 200 mls/hr IVPB Q12H [facility] Rx#:[id number] Flagyl Premix 500 MG/100 ML 500 100 / 100 100 / 100 mg In 100 ml @ 100 mls/hr IVPB Q8HR [facility] Rx#:[id number] Oral 240 / 240 600 / 600 240 / 240 Output: Urine 100 / 100 200 / 200 Other: Meal Dinner Breakfast Percent of Meal Consumed 50% - General physical appearance well developed, well nourished, no distress - Respiratory normal expansion, normal respiratory effort, clear to percussion, clear to auscultation - Cardiovascular Cardiovascular exam: Present: RRR, no murmurs/rubs/gallops - Abdomen Abdomen: Present: bowel sounds present, soft, non tender Hernia: none - Neurologic CN 2-12 grossly intact, normal coordination, normal sensation - Musculoskeletal normal gait, normal posture - Psychiatric oriented to time, oriented to person, oriented to place, speech is normal, memory intact - Labs 07/28/17 05:21 07/28/17 05:21 Diabetes panel 07/28/17 Range/Units 05:21 Sodium 138 (136-145) mEq/L Potassium 3.3 L (3.5-5.1) mEq/L Chloride 106 (98-107) mEq/L Carbon Dioxide 25 (23-29) mEq/L BUN 21 H (6-20) mg/dL Creatinine 0.71 (0.60-1.20) mg/dL Glucose 111 H (70-105) mg/dL Calcium 9.4 (8.6-10.3) mg/dL Calcium panel 07/28/17 Range/Units 05:21 Calcium 9.4 (8.6-10.3) mg/dL Pituitary panel 07/28/17 Range/Units 05:21 Sodium 138 (136-145) mEq/L Potassium 3.3 L (3.5-5.1) mEq/L Chloride 106 (98-107) mEq/L Carbon Dioxide 25 (23-29) mEq/L BUN 21 H (6-20) mg/dL Creatinine 0.71 (0.60-1.20) mg/dL Glucose 111 H (70-105) mg/dL Calcium 9.4 (8.6-10.3) mg/dL Adrenal panel 07/28/17 Range/Units 05:21 Sodium 138 (136-145) mEq/L Potassium 3.3 L (3.5-5.1) mEq/L Chloride 106 (98-107) mEq/L Carbon Dioxide 25 (23-29) mEq/L BUN 21 H (6-20) mg/dL Creatinine 0.71 (0.60-1.20) mg/dL Glucose 111 H (70-105) mg/dL Calcium 9.4 (8.6-10.3) mg/dL Consult Discharge Plan - Plan Instructions: Bowel Obstruction (DC) Referrals: Nikolas Oconnell DO [Family Provider] - (Call office in the morning to schedule follow up appointment ) Prescriptions: Ciprofloxacin HCl [Cipro] 500 mg PO BID 10 Days #20 tablet metroNIDAZOLE [Flagyl] 500 mg PO TID 10 Days #30 tablet <Abel Torres - Last Filed: 07/28/17 19:34> Date of Encounter: 07/28/17 Objective Intake and Output 07/28/17 07/28/17 07/28/17 07:59 15:59 23:59 Intake Total 1900 / 1900 240 / 240 Output Total 200 / 200 Balance 1700 / 1700 240 / 240 Intake: IV Fluids 1300 / 1300 0.9 % Sodium Chloride 1,000 ML 1000 / 1000 @ 75 mls/hr IVC .[id number] [facility] Rx #:[id number] Cipro Premix 400 MG/200 ML 400 200 / 200 mg In 200 ml @ 200 mls/hr IVPB Q12H [facility] Rx#:[id number] Flagyl Premix 500 MG/100 ML 500 100 / 100 mg In 100 ml @ 100 mls/hr IVPB Q8HR [facility] Rx#:[id number] Oral 600 / 600 240 / 240 Output: Urine 200 / 200 Other: Meal Breakfast Percent of Meal Consumed 50% - Labs 07/28/17 05:21 07/28/17 05:21 Diabetes panel 07/28/17 Range/Units 05:21 Sodium 138 (136-145) mEq/L Potassium 3.3 L (3.5-5.1) mEq/L Chloride 106 (98-107) mEq/L Carbon Dioxide 25 (23-29) mEq/L BUN 21 H (6-20) mg/dL Creatinine 0.71 (0.60-1.20) mg/dL Glucose 111 H (70-105) mg/dL Calcium 9.4 (8.6-10.3) mg/dL Calcium panel 07/28/17 Range/Units 05:21 Calcium 9.4 (8.6-10.3) mg/dL Pituitary panel 07/28/17 Range/Units 05:21 Sodium 138 (136-145) mEq/L Potassium 3.3 L (3.5-5.1) mEq/L Chloride 106 (98-107) mEq/L Carbon Dioxide 25 (23-29) mEq/L BUN 21 H (6-20) mg/dL Creatinine 0.71 (0.60-1.20) mg/dL Glucose 111 H (70-105) mg/dL Calcium 9.4 (8.6-10.3) mg/dL Adrenal panel 07/28/17 Range/Units 05:21 Sodium 138 (136-145) mEq/L Potassium 3.3 L (3.5-5.1) mEq/L Chloride 106 (98-107) mEq/L Carbon Dioxide 25 (23-29) mEq/L BUN 21 H (6-20) mg/dL Creatinine 0.71 (0.60-1.20) mg/dL Glucose 111 H (70-105) mg/dL Calcium 9.4 (8.6-10.3) mg/dL - Attending Attestation I have personally seen and examined the patient. I have reviewed pertinent labs , imaging, progress notes, including this one. I agree with the above assessment and plan and wish to include the following... tolerating diet; no pain; having bowel function; okay to discharge from surgery standpoint;
== END 2017-07-28 10:59 | disposition home or self-care (01) | DRG 390 ==
LOC: 3ANU 19:23 → EMEROO 19:23 → 3ANU 07-25 00:33 → SUATTDRO 07-26 10:50
PROVIDERS: ADMIT Internal Medicine; ATTEND Hospitalist